=== PATIENT | male | born 1980 | race African-American/Black ===

== ENCOUNTER 2021-01-23 19:23 | Emergency (ER) | payer MEDICAID ==
[~2021-01-23] VITALS: Ht 190.5 cm; Wt 142.4 kg
[2021-01-23] MEDS ORDERED: CLOTRIMAZOLE-BE15 GM TOP (19:48)
[2021-01-23 19:59] VITALS: BP 162/95
== END 2021-01-23 19:58 | disposition home or self-care (01) ==
LOC: FSED 19:45
DX: L30.8 Other specified dermatitis (principal)
CPT/HCPCS: 99282